=== PATIENT | female | born 1950 ===

== ENCOUNTER 2017-05-19 07:56 | Outpatient (CLI) | payer MEDICARE, BC | END 2017-05-19 07:57 | disposition home or self-care (01) | LOC: BICMAMMO 07:56 | PROVIDERS: ATTEND Internal Medicine | DX: Z12.31 Encounter for screening mammogram for malignant neoplasm of breast (principal); Z80.3 Family history of malignant neoplasm of breast | CPT/HCPCS: 77063; 77067 ==

== ENCOUNTER 2017-07-01 20:57 | Emergency (ER) | payer MEDICARE, BC | END 2017-07-01 21:30 | disposition home or self-care (01) | LOC: SCSER 20:57 | DX: H11.32 Conjunctival hemorrhage, left eye (principal); E03.9 Hypothyroidism, unspecified; E78.00 Pure hypercholesterolemia, unspecified; F41.9 Anxiety disorder, unspecified; F32.9 Major depressive disorder, single episode, unspecified | CPT/HCPCS: 99283 ==

== ENCOUNTER 2017-11-02 09:52 | Outpatient (CLI) | payer MEDICARE, BC ==
--- NOTE | 2017-11-02 13:29 | CT ---
CT CHEST WITHOUT IV CONTRAST UTILIZING A HIGH RESOLUTION CT THORAX PROTOCOL: INDICATIONS: Shortness of breath and cough. COMPARISON: None. FINDINGS: There is peripheral interlobular and intralobular septal thickening seen throughout both lungs, withi n the periphery, with a predominant basilar component. There are areas of mild peripheral traction b ronchiectasis again seen, predominantly in a basilar distribution. There are areas of persistent shania und glass opacity and tree-in-bud type nodularity within the lingula, suspicious for bronchiolitis. No confluent air space opacity is grossly evident. There is a small hiatal hernia. There are cholec ystectomy clips within the right upper quadrant. There is a small gastric diverticulum. No definite enlarged lymph nodes are evident. IMPRESSION: Areas of peripheral interlobular and intralobular septal thickening and mild peripheral traction bron chiectasis, seen predominantly in a basilar distribution, suspicious for interstitial lung disease, s uch as UIP (usual interstitial pneumonia) or potentially NSIP (nonspecific interstitial pneumonia). There are areas of tree-in-bud type nodularity within the periphery of the lingula, suspicious for br onchiolitis. POS: [facility]
== END 2017-11-02 09:53 | disposition home or self-care (01) ==
LOC: BICCT 09:52
PROVIDERS: ATTEND Internal Medicine Pulmonary Disease
DX: J47.9 Bronchiectasis, uncomplicated (principal); R91.1 Solitary pulmonary nodule; J98.4 Other disorders of lung
CPT/HCPCS: 71250

== ENCOUNTER 2018-03-18 10:29 | Outpatient (CLI) | payer MEDICARE, BC ==
--- NOTE | 2018-03-18 11:37 | BD ---
BONE DENSITOMETRY USING DEXA: Date: 03/18/18 HISTORY: Postmenopausal screening for osteoporosis. FINDINGS: Lumbar Spine: BMD (g/cm2) L1 0.822 T-Score: -1.5 Z-Score: 0.1 L2 0.874 T-Score: -1.4 Z-Score: 0.4 L3 0.962 T-Score: -1.1 Z-Score: 0.8 L4 1.016 T-Score: -0.4 Z-Score: 1.6 L1-L4 0.923 T-Score: -1.1 Z-Score: 0.7 Femoral Neck: 0.753 T-Score: -0.9 Z-Score: 0.7 Total Femur: 0.914 T-Score: -0.2 Z-Score: 1.1 The 10 year fracture risk for a major osteoporotic fracture is 15% and for a hip fracture is 0.8%. IMPRESSION: Osteopenia. POS: [facility]
== END 2018-03-18 10:30 | disposition home or self-care (01) ==
LOC: BICMAMMO 10:29
PROVIDERS: ATTEND Internal Medicine
DX: M85.89 Other specified disorders of bone density and structure, multiple sites (principal)
CPT/HCPCS: 77080

== ENCOUNTER 2018-05-24 08:55 | Outpatient (CLI) | payer MEDICARE, BC ==
--- NOTE | 2018-05-24 09:19 | MMO ---
Bilateral MAMMO Bilat Screen [facility]. CLINICAL HISTORY: Patient is 67 years old and is seen for screening. The patient has the following family history of breast cancer: sister, at age 56. The patient has no personal history of cancer. VIEWS: The views performed were: bilateral craniocaudal with tomosynthesis and bilateral mediolateral oblique with tomosynthesis. FILMS COMPARED: The present examination has been compared to prior imaging studies performed at [facility] 03/30/2014, and at [facility] on 04/29/2015, 05/10/2015, 11/11/2015, 05/11/2016 and 05/19/2017. MAMMOGRAM FINDINGS: There are scattered fibroglandular densities. There are no suspicious masses, suspicious calcifications, or new areas of architectural distortion. IMPRESSION: THERE IS NO MAMMOGRAPHIC EVIDENCE OF MALIGNANCY. A ROUTINE FOLLOW-UP MAMMOGRAM IN 1 YEAR IS RECOMMENDED. THE RESULTS OF THIS EXAM WERE SENT TO THE PATIENT. ACR BI-RADS Category 1 - Negative MAMMOGRAPHY NOTE: 1. A negative mammogram report should not delay a biopsy if a dominant of clinically suspicious mass is present. 2. Approximately 10% to 15% of breast cancers are not detected by mammography. 3. Adenosis and dense breasts may obscure an underlying neoplasm.
== END 2018-05-24 08:56 | disposition home or self-care (01) ==
LOC: BICMAMMO 08:55
PROVIDERS: ATTEND Internal Medicine
DX: Z12.31 Encounter for screening mammogram for malignant neoplasm of breast (principal); Z80.3 Family history of malignant neoplasm of breast
CPT/HCPCS: 77063; 77067

== ENCOUNTER 2018-12-28 10:48 | Outpatient (CLI) | payer MEDICARE, BC ==
--- NOTE | 2018-12-28 11:18 | RAD ---
Exam: Chest 2 views HISTORY:Dyspnea Comparison: None FINDINGS: Lungs: Mild patchy density, left lung base could relate to pericardial fat pad Cardiac silhouette: Normal size Pulmonary vessels: Normal Pleural Spaces: Clear Pneumothorax: None Osseous abnormalities: None of acuity. IMPRESSION: Mild patchy left basilar density, which may be on the basis of pericardial fat pad
== END 2018-12-28 10:49 | disposition home or self-care (01) ==
LOC: RAD 10:48
PROVIDERS: ATTEND Internal Medicine Pulmonary Disease
DX: R06.00 Dyspnea, unspecified (principal); J98.4 Other disorders of lung
CPT/HCPCS: 71046